=== PATIENT | female | born 1975 | race Caucasian/White ===

== ENCOUNTER 2016-12-16 02:29 | Emergency (ER) | payer OTHER ==
[~2016-12-16] VITALS: Ht 165.1 cm; Wt 89.4 kg
[~2016-12-16 02:29] MED LIST: CEPH500 PO; METH5SOL3 PO; METO25TA3 PO; NAPR500 PO
[2016-12-16 02:36] VITALS: BP 164/91; PULSE 64; RESP 18; TEMP 97.4; O2SAT 100
[2016-12-16 02:56] VITALS: BP 164/91; PULSE 64; RESP 18; O2SAT 100
[2016-12-16] MEDS ORDERED: SODIUM CHLOR 0.9% 1000 ML INJ 1,000 ML IV SCH (03:14)
[2016-12-16] MEDS ORDERED: ONDANSETRON HCL 4 MG/2 ML VIAL IVP ONE (03:15)
[2016-12-16] MEDS ORDERED: HYDROmorphone HCL PF 1 MG/ML VIAL IVS ONE (03:15)
[2016-12-16] MEDS ORDERED: SODIUM CHLORIDE 0.9% FLUSH 10 ML FLUSH IV FLUSH PRN (03:15)
[2016-12-16 03:19] LABS: BLOOD, URINE LARGE (NEG); GLUCOSE,URINE NEG (NEG); KETONE, URINE NEG (NEG); NITRITE,URINE NEG (NEG); PH, URINE 5.5 (5.0-8.5)
[2016-12-16] MEDS ORDERED: METH10TA PO (03:19)
--- NOTE | 2016-12-16 03:21 | PD ---
HPI Chief Complaint: Flank/Kidney Pain Time Seen by Provider: 02:57 Travel History International Travel<30 days: No Contact w/Intl Traveler<30days: No Traveled to known affect area: No History of Present Illness HPI The patient is a 41-year-old female that complains of left sided low back/left flank pain that radiates to the groin area but not down the left leg. She denies any dysuria, frequency or urgency. She has some nausea when the pain gets bad but no vomiting. She denies any fever. The pain started at 8 PM tonight. The patient is on methadone. PFSH Past Medical History Blood Disorders: No Anxiety: Yes Depression: Yes Heart Rhythm Problems: No Cancer: No Cardiac Catheterization: No Cardiovascular Problems: Yes (HTN) High Cholesterol: No Chest Pain: Yes Congestive Heart Failure: No Diabetes: No Diminished Hearing: No Endocrine: No Gastrointestinal Disorders: No Genitourinary: No Hypertension: Yes Immune Disorder: No Musculoskeletal: No Neurologic: No Reproductive: No Respiratory: No Myocardial Infarction: No Thyroid Disease: Yes Tetanus Vaccination: Unknown ?: Not LMP: 12/16/2016 : 7 Para: 4 Miscarriage: 0 : 2 Tubal Ligation: Yes Past Surgical History Cholecystectomy: Yes Coronary Artery Bypass Graft: No Other Surgery: No Social History Alcohol Use: No Tobacco Use: No Substance Use: No (HX OF OPIATE but denies ever using IV drugs) Allergies-Medications (Allergen,Severity, Reaction): Coded Allergies: Iodine (Verified Allergy, Severe, Anaphylaxis, 12/16/16) Shellfish (Verified Allergy, Severe, Anaphylaxis, 12/16/16) Sulfa (Verified Allergy, Severe, Hives, 12/16/16) Latex (Verified Allergy, Mild, SURFACE REACTION-RASH, 12/16/16) Reported Meds & Prescriptions Reported Meds & Active Scripts Active Metoprolol Tartrate 25 Mg Tab 0.5 Tab PO BID Reported Methadone (Methadone HCl) 10 Mg Tab 150 Mg PO DAILY Physical Exam Narrative GENERAL: The patient is alert, oriented 3 and slight apparent distress with her abdominal/pelvic discomfort. The temperature is 97.4 and the blood pressure is 164/91 but the rest the vital signs are normal. SKIN: Focused skin assessment warm/dry. HEAD: Atraumatic. Normocephalic. EYES: Pupils equal and round. No scleral icterus. No injection or drainage. ENT: No nasal bleeding or discharge. Mucous membranes pink and moist. NECK: Trachea midline. No JVD. CARDIOVASCULAR: Regular rate and rhythm. No murmur appreciated. RESPIRATORY: No accessory muscle use. Clear to auscultation. Breath sounds equal bilaterally. GASTROINTESTINAL: Abdomen soft, non-tender, nondistended. Hepatic and splenic margins not palpable. MUSCULOSKELETAL: No obvious deformities. No clubbing. No cyanosis. No edema. NEUROLOGICAL: Awake and alert. No obvious cranial nerve deficits. Motor grossly within normal limits. Normal speech. PSYCHIATRIC: Appropriate mood and affect; insight and judgment normal. Data Data Last Documented VS Vital Signs Date Time Temp Pulse Resp B/P Pulse Ox O2 Delivery O2 Flow Rate FiO2 12/16/16 03:59 66 18 164/83 100 Room Air 12/16/16 02:36 97.4 Orders Urinalysis - C+S If Indicated (12/16/16 03:03) Complete Blood Count With Diff (12/16/16 03:14) Comprehensive Metabolic Panel (12/16/16 03:14) Lipase (12/16/16 03:14) Ct Abd/Pel W/O Iv Contrast (12/16/16 03:14) Iv Access Insert/Monitor (12/16/16 03:14) Ecg Monitoring (12/16/16 03:14) Oximetry (12/16/16 03:14) Ondansetron Inj (Zofran Inj) (12/16/16 03:15) Sodium Chlor 0.9% 1000 Ml Inj (Ns 1000 M (12/16/16 03:14) Sodium Chloride 0.9% Flush (Ns Flush) (12/16/16 03:15) Ed Urine Pregnancytest Poc (12/16/16 03:14) Ketorolac Inj (Toradol Inj) (12/16/16 03:30) Labs Laboratory Tests Test 12/16/16 12/16/16 03:00 03:25 Urine Color JAMES Urine Turbidity MOD Urine pH 5.5 Urine Specific Duncan 1.020 Urine Protein TRACE mg/dL Urine Glucose (UA) NEG mg/dL Urine Ketones NEG mg/dL Urine Occult Blood LARGE Urine Nitrite NEG Urine Bilirubin NEG Urine Leukocyte Esterase NEG Urine RBC 100-200 /hpf Urine WBC 0-2 /hpf Urine Squamous Epithelial 6-8 /hpf Cells Urine Bacteria FEW /hpf Urine Mucus MOD /lpf Microscopic Urinalysis Comment CULT NOT INDICATED White Blood Count 10.3 TH/MM3 Red Blood Count 4.22 MIL/MM3 Hemoglobin 12.0 GM/DL Hematocrit 36.0 % Mean Corpuscular Volume 85.5 FL Mean Corpuscular Hemoglobin 28.4 PG Mean Corpuscular Hemoglobin 33.2 % Concent Red Cell Distribution Width 13.5 % Platelet Count 303 TH/MM3 Mean Platelet Volume 8.7 FL Neutrophils (%) (Auto) 61.4 % Lymphocytes (%) (Auto) 27.9 % Monocytes (%) (Auto) 6.9 % Eosinophils (%) (Auto) 2.7 % Basophils (%) (Auto) 1.1 % Neutrophils # (Auto) 6.3 TH/MM3 Lymphocytes # (Auto) 2.9 TH/MM3 Monocytes # (Auto) 0.7 TH/MM3 Eosinophils # (Auto) 0.3 TH/MM3 Basophils # (Auto) 0.1 TH/MM3 CBC Comment DIFF FINAL Differential Comment Sodium Level 140 MEQ/L Potassium Level 3.6 MEQ/L Chloride Level 104 MEQ/L Carbon Dioxide Level 28.7 MEQ/L Anion Gap 7 MEQ/L Blood Urea Nitrogen 12 MG/DL Creatinine 0.99 MG/DL Estimat Glomerular Filtration 62 ML/MIN Rate Random Glucose 111 MG/DL Calcium Level 8.8 MG/DL Total Bilirubin 0.2 MG/DL Aspartate Amino Transf 18 U/L (AST/SGOT) Alanine Aminotransferase 26 U/L (ALT/SGPT) Alkaline Phosphatase 109 U/L Total Protein 7.7 GM/DL Albumin 3.4 GM/DL Lipase 61 U/L [facility] Medical Decision Making Medical Screen Exam Complete: Yes Emergency Medical Condition: Yes Medical Record Reviewed: Yes Interpretation(s) The CT scan shows a left ovarian cyst that measures up to 4.4 cm. There is no free fluid present. No acute inflammatory process is present. A subcentimeter , likely benign low-density hepatic lesion is also present. The CBC is completely normal. The complete metabolic profile shows a GFR of 62 but is otherwise normal. The lipase is normal. The urine is james colored with moderate turbidity and large occult blood and 100-200 red cells with few bacteria but is otherwise normal and culture is not indicated. The point-of- care urine test is negative. Differential Diagnosis Left ureteral stone, ruptured ovarian cyst, ovarian cyst nonruptured, urinary tract infection, diverticulitis, , ectopic Narrative Course The patient appears to have a non-ruptured ovarian cyst. There is no free fluid present on the CT scan to indicate a ruptured or leaking cyst. The patient is on her menstrual period and this accounts for the blood in the urine. Diagnosis Primary Impression: Ovarian cyst Additional Instructions: Take Motrin 1 tablet 3 times daily. High anti-inflammatory levels usual will relieve the pain. Follow-up with a business quality assurance analyst as soon as possible. If the cyst ruptures it could cause a sudden increase of pain. There is a chance it could be leaking slightly. Med/Other Pt SpecificInfo: Prescription(s) given Scripts Promethazine (Phenergan)25 Mg Tab25 Mg PO Q6H PRN (Nausea/Vomiting) #20 TAB Ref 0 Prov:Jl Han MD 12/16/16 Ibuprofen 600 Mg [id number] Mg PO TID #44 TAB Ref 0 Prov:Jl Han MD 12/16/16 Disposition: 01 DISCHARGE HOME Condition: Stable Jl Han MD Dec 16, 2016 03:21
[2016-12-16] MEDS ORDERED: KETOROLAC TROMETHAMINE 60 MG/2 ML (IM) VIAL IVP ONE (03:30)
[2016-12-16 03:39] LABS: AUTOMATED NEUTROPHIL # 6.3 TH/MM3 (1.8-7.7); BASOPHIL # 0.1 TH/MM3 (0-0.2); BASOPHIL % 1.1 % (0.0-2.0); EOSINOPHIL # 0.3 TH/MM3 (0-0.4); EOSINOPHIL % 2.7 % (0.0-4.0); HEMO FLAGS DIFF FINAL; LYMPH % 27.9 % (9.0-44.0); LYMPHOCYTE # 2.9 TH/MM3 (1.0-4.8); MEAN CELL VOLUME 85.5 FL (80.0-100.0); MEAN CORPUSCULAR HEMOGLOBIN 28.4 PG (27.0-34.0); MEAN CORPUSCULAR HGB CONC 33.2 % (32.0-36.0); MONO % 6.9 % (0.0-8.0); NEUT % 61.4 % (16.0-70.0); PLATELET COUNT 303 TH/MM3 (150-450); RED BLOOD COUNT 4.22 MIL/MM3 (4.00-5.30); RED CELL DISTRIBUTION WIDTH 13.5 % (11.6-17.2); WHITE BLOOD COUNT 10.3 TH/MM3 (4.0-11.0)
[2016-12-16 03:47] LABS: MUCUS URINE MOD /lpf (OCC); RBC, URINE 100-200 /hpf (0-3); URINE COLOR AMBER (YELLW/STRAW)
[2016-12-16 03:50] LABS: WBC, URINE 0-2 /hpf (0-5)
[2016-12-16 03:51] LABS: COMMENT (UR) CULT NOT INDICATED; CULTURE IF INDICATED CULT NOT INDICATED
[2016-12-16 03:52] LABS: BACTERIA, URINE FEW /hpf
[2016-12-16 03:57] VITALS: BP 164/83; PULSE 66; RESP 18; O2SAT 100
[2016-12-16 03:58] LABS: CHLORIDE 104 MEQ/L (98-107); POTASSIUM 3.6 MEQ/L (3.5-5.1); SODIUM (NA) 140 MEQ/L (136-145)
[2016-12-16 03:59] VITALS: BP 164/83; PULSE 66; RESP 18; O2SAT 100
[2016-12-16 04:02] LABS: ANION GAP 7 MEQ/L (5-15); BICARBONATE 28.7 MEQ/L (21.0-32.0); BLOOD UREA NITROGEN 12 MG/DL (7-18)
[2016-12-16 04:05] LABS: ALT (GPT) 26 U/L (10-53); AST (GOT) 18 U/L (15-37); GLOMERULAR FILTRATION RATE 62 ML/MIN (>89)
[2016-12-16 04:06] LABS: TOTAL BILIRUBIN ADULT 0.2 MG/DL (0.2-1.0)
[2016-12-16 04:08] LABS: ALKALINE PHOSPHATASE 109 U/L (45-117)
--- NOTE | 2016-12-16 04:13 | RADHPO ---
EXAM DATE/TIME: 12/16/2016 03:40 [place] COMPARISON: No previous studies available for comparison. INDICATIONS : Left flank and back pain. ORAL CONTRAST: No oral contrast ingested. RADIATION DOSE: 23.21 CTDIvol (mGy) MEDICAL HISTORY : Hypertension. SURGICAL HISTORY : Cholecystectomy. Tubal ligation. ENCOUNTER: Initial ACUITY: 1 day PAIN SCALE: 9/10 LOCATION: Left flank TECHNIQUE: Volumetric scanning of the abdomen and pelvis was performed. Using automated exposure control and ad justment of the mA and/or kV according to patient size, radiation dose was kept as low as reasonably achievable to obtain optimal diagnostic quality images. FINDINGS: LOWER LUNGS: The visualized lower lungs are clear. LIVER: Homogeneous density without lesion. There is no dilation of the biliary tree. No calcified gallston es. Subcentimeter hepatic low-density appears of fat density and benign. SPLEEN: Normal size without lesion. PANCREAS: Within normal limits. KIDNEYS: Normal in size and shape. There is no mass, stone, or hydronephrosis. No ureteral calculi. ADRENAL GLANDS: Within normal limits. VASCULAR: There is no aortic aneurysm. BOWEL/MESENTERY: The stomach, small bowel, and colon demonstrate no acute abnormality. There is no free intraperitone al air or fluid. Normal appendix. ABDOMINAL WALL: Within normal limits. RETROPERITONEUM: There is no lymphadenopathy. BLADDER: No wall thickening or mass. REPRODUCTIVE: Left ovarian cyst measures 4.4 x 3.4 cm.. INGUINAL: There is no lymphadenopathy or hernia. MUSCULOSKELETAL: Within normal limits for patient age. CONCLUSION: 1. Left ovarian cyst measures up to 4.4 cm. Followup pelvic sonogram in 3-4 weeks recommended for sta bility. 2. No acute inflammatory process. 3. Subcentimeter hepatic low-density, likely benign. Chiki Tracy MD on December 16, 2016 at 4:09 Board Certified Radiologist. This report was verified electronically.
[2016-12-16] MEDS ORDERED: IBUP-232 PO (04:53)
[2016-12-16] MEDS ORDERED: PROM25TA5 PO (04:54)
== END 2016-12-16 05:19 | disposition home or self-care (01) ==
LOC: PHED 02:29
DX: M54.5 Low back pain (principal); R10.32 Left lower quadrant pain; N83.202 Unspecified ovarian cyst, left side; I10 Essential (primary) hypertension; E07.9 Disorder of thyroid, unspecified
CPT/HCPCS: 74176; 80053; 81001; 83690; 84703; 85025; 96361; 96374; 96375; 99284; J1885; J2405; J7030

== ENCOUNTER 2016-12-22 20:01 | Emergency (ER) | payer OTHER ==
[~2016-12-22] VITALS: Ht 165.1 cm; Wt 89.1 kg
[~2016-12-22 20:01] MED LIST changes: -CEPH500 PO; +IBUP-232 PO; +METH10TA PO; -METH5SOL3 PO; -NAPR500 PO; +PROM25TA5 PO
[2016-12-22] MEDS ORDERED: CLINDAMYCIN INJ 900 MG in SODIUM CHLORIDE 0.9% INJ 100 ML IV ONE (21:45)
[2016-12-22] MEDS ORDERED: CLINDAMYCIN PHOS 600 MG/4 ML VIAL IM ONE (21:45)
[2016-12-22] MEDS ORDERED: IBUP800T23 PO (21:50)
[2016-12-22] MEDS ORDERED: CLIN1CAP5 PO (21:50)
[2016-12-22] MEDS ORDERED: FLOR250C PO (21:50)
[2016-12-22] MEDS ORDERED: TRAM50TA PO (21:51)
--- NOTE | 2016-12-22 21:52 | PD ---
HPI Chief Complaint: Oral / Dental Pain or Problem Time Seen by Provider: 21:46 Travel History International Travel<30 days: No Contact w/Intl Traveler<30days: No Traveled to known affect area: No History of Present Illness HPI Patient is a 41-year-old female presenting to emergency department evaluation of right lower jaw and tooth pain. Patient states she had a toothache yesterday but woke up this morning with her chin and her right lower jaw swollen. She states pain is an 8 out of 10 and describes it as pressure-like and throbbing. Patient has an appointment with her dentist on Wednesday but due to the increased swelling and pain she came to the emergency department for evaluation. She denies any fever, chills, nausea, vomiting, headache or shortness of breath. PFSH Past Medical History Blood Disorders: No Anxiety: Yes Depression: Yes Heart Rhythm Problems: No Cancer: No Cardiac Catheterization: No Cardiovascular Problems: Yes (HTN) High Cholesterol: No Chest Pain: Yes Congestive Heart Failure: No Diabetes: No Diminished Hearing: No Endocrine: No Gastrointestinal Disorders: No Genitourinary: No Hypertension: Yes Immune Disorder: No Musculoskeletal: No Neurologic: No Reproductive: No Respiratory: No Myocardial Infarction: No Thyroid Disease: Yes Tetanus Vaccination: > 5 Years Influenza Vaccination: No ?: Unknown LMP: 2 DAYS AGO : 7 Para: 4 Miscarriage: 0 : 2 Tubal Ligation: Yes Past Surgical History Cholecystectomy: Yes Coronary Artery Bypass Graft: No Other Surgery: No Social History Alcohol Use: No Tobacco Use: No Substance Use: No (HX OF OPIATE but denies ever using IV drugs) Allergies-Medications (Allergen,Severity, Reaction): Coded Allergies: Iodine (Verified Allergy, Severe, Anaphylaxis, 12/16/16) Shellfish (Verified Allergy, Severe, Anaphylaxis, 12/16/16) Sulfa (Verified Allergy, Severe, Hives, 12/16/16) Latex (Verified Allergy, Mild, SURFACE REACTION-RASH, 12/16/16) Reported Meds & Prescriptions Reported Meds & Active Scripts Active Metoprolol Tartrate 25 Mg Tab 0.5 Tab PO BID Reported Methadone (Methadone HCl) 10 Mg Tab 150 Mg PO DAILY Review of Systems Except as stated in HPI: all other systems reviewed are Neg HENT: Positive: Dental Difficulties Musculoskeletal: Positive: Edema, Pain Physical Exam Narrative GENERAL: Well-nourished, well-developed patient. SKIN: Focused skin assessment warm/dry. Chin is edematous, no erythema noted. Mildly tender to palpation. HEAD: Normocephalic. MOUTH: Mucous membranes moist, no lesions, tongue and gums appear normal. Right lower lateral incisor and cuspid have obvious dental caries and a broken. EYES: No scleral icterus. No injection or drainage. NECK: Supple, trachea midline. No JVD or lymphadenopathy. CARDIOVASCULAR: Regular rate and rhythm without murmurs, gallops, or rubs. RESPIRATORY: Breath sounds equal bilaterally. No accessory muscle use. GASTROINTESTINAL: Abdomen soft, non-tender, nondistended. MUSCULOSKELETAL: No cyanosis, or edema. BACK: Nontender without obvious deformity. No CVA tenderness. Data Data Orders Iv Access Insert/Monitor (12/22/16 21:33) Clindamycin Inj (Cleocin Inj) (12/22/16 21:45) Clindamycin Inj (Cleocin Inj) (12/22/16 21:45) MDM Medical Decision Making Medical Screen Exam Complete: Yes Emergency Medical Condition: Yes Differential Diagnosis Caries versus abscess versus cellulitis versus other Narrative Course Patient is a 41-year-old female presented to the emergency department for evaluation of right lower tooth pain and jaw swelling. Physical examination is most consistent with dental abscess. Patient will be given clindamycin emergency department. She'll be provided with a prescription for clindamycin to complete full course of antibiotics at home. She has an appointment with a dentist on Wednesday, she was advised to keep this appointment. She is encouraged to return to emergency department for any new or worsening symptoms. Patient verbalized understanding of these instructions. Patient is stable for discharge. Diagnosis Primary Impression: Dental abscess Referrals: Dentist 3 days Patient Instructions: Dental Abscess (GEN), Dental Caries (ED), General Instructions Additional Instructions: Follow-up with your dentist on Wednesday as scheduled Complete full course of antibodies as prescribed Return to emergency department for any new or worsening symptoms Do not drive or operate heavy machinery while taking narcotic pain medication Med/Other Pt SpecificInfo: Prescription(s) given Scripts Ibuprofen 800 Mg [id number] Mg PO Q6HR PRN (PAIN) #40 TAB Ref 0 Prov:Ute Yuen 12/22/16 Saccharomyces Boulardii (Florastor)250 Mg [id number] Mg PO BID 10 Days Ref 0 Prov:Ute Yuen 12/22/16 Clindamycin 150 Mg [id number] Mg PO Q8HR 10 Days Ref 0 Prov:Ute Yuen 12/22/16 Disposition: 01 DISCHARGE HOME Condition: Stable Ute Yuen Dec 22, 2016 21:51
[2016-12-22 22:31] VITALS: BP 154/93; PULSE 86; RESP 18; TEMP 98.4; O2SAT 97
== END 2016-12-22 22:51 | disposition home or self-care (01) ==
LOC: PHED 20:01 → PHEFT 22:51
DX: K04.7 Periapical abscess without sinus (principal); I10 Essential (primary) hypertension; E07.9 Disorder of thyroid, unspecified
CPT/HCPCS: 96372

== ENCOUNTER 2017-09-15 17:19 | Emergency (ER) | payer SELFPAY ==
[~2017-09-15 17:19] MED LIST changes: +CLIN150C14 PO; +FLOR250C PO; -IBUP-232 PO; +IBUP1TAB7 PO; -PROM25TA5 PO; +TRAM50TA PO
[2017-09-15 18:11] VITALS: BP 124/79; PULSE 86; RESP 20; TEMP 99; O2SAT 98
[2017-09-15] MEDS ORDERED: DICYCLOMINE HCL 20 MG/2 ML VIAL IM ONE (20:15)
[2017-09-15] MEDS ORDERED: SODIUM CHLOR 0.9% 1000 ML INJ 1,000 ML IV SCH ×2 (20:15)
[2017-09-15] MEDS ORDERED: ONDANSETRON HCL 4 MG/2 ML VIAL IV PUSH ONE (20:15)
[2017-09-15] MEDS ORDERED: LOPERAMIDE HCL 2 MG CAP PO ONE (20:15)
[2017-09-15 21:13] VITALS: BP 140/74; PULSE 83; RESP 20; O2SAT 97
[2017-09-15 21:15] LABS: CHLORIDE 106 MEQ/L (98-107); SODIUM (NA) 139 MEQ/L (136-145)
--- NOTE | 2017-09-15 21:15 | PD ---
HPI Chief Complaint: GI Complaint Time Seen by Provider: 20:10 Travel History International Travel<30 days: No Contact w/Intl Traveler<30days: No Traveled to known affect area: No History of Present Illness HPI A 42-year-old woman who presents to the emergency department complaining of nausea vomiting diarrhea that started this morning. She has abdominal pain with it as well. No blood. No fevers. She symptoms came on fairly abruptly. No definite sick contacts. No recent travel. No undercooked or unusual foods. History Past Medical History Narrative Medical Hypertension History of episodes of increased heart rate in the past Influenza Vaccination: No LMP: 09/12/16 : 7 Para: 4 Social History Alcohol Use: No Tobacco Use: No Allergies-Medications (Allergen,Severity, Reaction): Coded Allergies: Sulfa (Sulfonamide Antibiotics) (Unverified Allergy, Severe, Hives, ) iodine (Unverified Allergy, Severe, Anaphylaxis, 04/20/17) potassium iodide (Unverified Allergy, Severe, Anaphylaxis, 04/20/17) povidone-iodine (Unverified Allergy, Severe, Anaphylaxis, 04/20/17) shellfish derived (Unverified Allergy, Severe, Anaphylaxis, 04/20/17) sodium iodide (Unverified Allergy, Severe, Anaphylaxis, 04/20/17) sodium iodide (Unverified Allergy, Severe, Anaphylaxis, 04/20/17) latex (Unverified Allergy, Mild, SURFACE REACTION-RASH, 04/20/17) Reported Meds & Prescriptions Reported Meds & Active Scripts Active Ibuprofen 800 Mg Tab 800 Mg PO Q6HR PRN Metoprolol Tartrate 25 Mg Tab 0.5 Tab PO BID Reported Methadone (Methadone HCl) 10 Mg Tab 150 Mg PO DAILY Review of Systems Except as stated in HPI: all other systems reviewed are Neg Physical Exam Narrative GENERAL: Appears uncomfortable, nontoxic SKIN: Focused skin assessment warm/dry. HEAD: Atraumatic. Normocephalic. EYES: Pupils equal and round. No scleral icterus. No injection or drainage. ENT: No nasal bleeding or discharge. Mucous membranes pink and moist. NECK: Trachea midline. No JVD. CARDIOVASCULAR: Regular rate and rhythm. No murmur appreciated. RESPIRATORY: No accessory muscle use. Clear to auscultation. Breath sounds equal bilaterally. GASTROINTESTINAL: Abdomen soft, non-tender, nondistended. Hepatic and splenic margins not palpable. MUSCULOSKELETAL: No obvious deformities. No clubbing. No cyanosis. No edema. NEUROLOGICAL: Awake and alert. No obvious cranial nerve deficits. Motor grossly within normal limits. Normal speech. PSYCHIATRIC: Appropriate mood and affect; insight and judgment normal. Data Data Last Documented VS Vital Signs Date Time Temp Pulse Resp B/P (MAP) Pulse Ox O2 Delivery O2 Flow Rate FiO2 09/15/17 23:21 91 20 108/58 (75) 99 09/15/17 18:11 99.0 Orders Orders Ed Urine Pregnancytest Poc (09/15/17 17:37) Complete Blood Count With Diff (09/15/17 20:11) Comprehensive Metabolic Panel (09/15/17 20:11) Iv Access Insert/Monitor (09/15/17 20:11) Lipase (09/15/17 20:11) Sodium Chlor 0.9% 1000 Ml Inj (Ns 1000 M (09/15/17 20:15) Sodium Chlor 0.9% 1000 Ml Inj (Ns 1000 M (09/15/17 20:15) Dicyclomine Inj (Bentyl Inj) (09/15/17 20:15) Loperamide (Imodium) (09/15/17 20:15) Ondansetron Inj (Zofran Inj) (09/15/17 20:15) Labs Laboratory Tests Test 09/15/17 20:50 White Blood Count 16.8 TH/MM3 Red Blood Count 4.49 MIL/MM3 Hemoglobin 12.5 GM/DL Hematocrit 38.5 % Mean Corpuscular Volume 85.8 FL Mean Corpuscular Hemoglobin 27.8 PG Mean Corpuscular Hemoglobin Concent 32.4 % Red Cell Distribution Width 13.1 % Platelet Count 257 TH/MM3 Mean Platelet Volume 9.1 FL Neutrophils (%) (Auto) 89.3 % Lymphocytes (%) (Auto) 5.2 % Monocytes (%) (Auto) 4.3 % Eosinophils (%) (Auto) 0.1 % Basophils (%) (Auto) 1.1 % Neutrophils # (Auto) 15.0 TH/MM3 Lymphocytes # (Auto) 0.9 TH/MM3 Monocytes # (Auto) 0.7 TH/MM3 Eosinophils # (Auto) 0.0 TH/MM3 Basophils # (Auto) 0.2 TH/MM3 CBC Comment DIFF FINAL Differential Comment Blood Urea Nitrogen 16 MG/DL Creatinine 0.90 MG/DL Random Glucose 104 MG/DL Total Protein 7.8 GM/DL Albumin 3.7 GM/DL Calcium Level 8.8 MG/DL Alkaline Phosphatase 101 U/L Aspartate Amino Transf (AST/SGOT) 27 U/L Alanine Aminotransferase (ALT/SGPT) 26 U/L Total Bilirubin 0.4 MG/DL Sodium Level 139 MEQ/L Potassium Level 4.0 MEQ/L Chloride Level 106 MEQ/L Carbon Dioxide Level 26.6 MEQ/L Anion Gap 6 MEQ/L Estimat Glomerular Filtration Rate 69 ML/MIN Lipase 55 U/L [facility] Medical Decision Making Medical Screen Exam Complete: Yes Emergency Medical Condition: Yes Interpretation(s) LABS: CbC remarkable for mild leukocytosis. CMP unremarkable. Differential Diagnosis Acute gastroenteritis, enteritis, influenza, other Narrative Course Medical decision-making 42-year-old with abrupt onset nausea vomiting diarrhea with copious watery diarrhea, suggestive of acute gastroenteritis. Looks uncomfortable but not unwell. Recommend IV fluids, labs, reassess. Diagnosis Primary Impression: Nausea vomiting and diarrhea Additional Instructions: Use Zofran if needed for nausea or vomiting. Use loperamide if needed for diarrhea. Drink plenty fluids stay well-hydrated. Return to the emergency department for any new or worsening symptoms. Med/Other Pt SpecificInfo: Prescription(s) given Scripts Ondansetron Odt (Ondansetron Odt) 4 Mg Tab 4 MG SL Q8HR Y for Nausea/Vomiting, #12 TAB 0 Refills Prov: Db Mcmillan MD 09/16/17 Loperamide (Loperamide) 2 Mg Cap 2 MG PO DIRECTED Y for DIARRHEA, #6 CAP 0 Refills One capsule after each loose stool. Not to exceed 8 capsules per day. Prov: Db Mcmillan MD 09/16/17 Disposition: 01 DISCHARGE HOME Condition: Stable Db Mcmillan MD Sep 15, 2017 21:15
[2017-09-15 21:19] LABS: CALCIUM 8.8 MG/DL (8.5-10.1)
[2017-09-15 21:20] LABS: ALBUMIN 3.7 GM/DL (3.4-5.0); BICARBONATE 26.6 MEQ/L (21.0-32.0); BLOOD UREA NITROGEN 16 MG/DL (7-18); GLUCOSE,RANDOM 104 MG/DL (74-106); LIPASE 55 U/L (73-393)
[2017-09-15 21:22] LABS: ALT (GPT) 26 U/L (10-53); AST (GOT) 27 U/L (15-37); GLOMERULAR FILTRATION RATE 69 ML/MIN (>89)
[2017-09-15 21:24] LABS: TOTAL BILIRUBIN ADULT 0.4 MG/DL (0.2-1.0); TOTAL PROTEIN 7.8 GM/DL (6.4-8.2)
[2017-09-15 21:25] LABS: ALKALINE PHOSPHATASE 101 U/L (45-117)
[2017-09-15 21:30] LABS: BASOPHIL # 0.2 TH/MM3 (0-0.2); BASOPHIL % 1.1 % (0.0-2.0); EOSINOPHIL % 0.1 % (0.0-4.0); HEMATOCRIT 38.5 % (35.0-46.0); HEMOGLOBIN 12.5 GM/DL (11.6-15.3); LYMPH % 5.2 % (9.0-44.0); LYMPHOCYTE # 0.9 TH/MM3 (1.0-4.8); MEAN CELL VOLUME 85.8 FL (80.0-100.0); MEAN CORPUSCULAR HEMOGLOBIN 27.8 PG (27.0-34.0); MEAN CORPUSCULAR HGB CONC 32.4 % (32.0-36.0); MEAN PLATELET VOLUME 9.1 FL (7.0-11.0); MONO % 4.3 % (0.0-8.0); MONOCYTE # 0.7 TH/MM3 (0-0.9); NEUT % 89.3 % (16.0-70.0); PLATELET COUNT 257 TH/MM3 (150-450); RED BLOOD COUNT 4.49 MIL/MM3 (4.00-5.30); RED CELL DISTRIBUTION WIDTH 13.1 % (11.6-17.2); WHITE BLOOD COUNT 16.8 TH/MM3 (4.0-11.0)
[2017-09-15 22:37] VITALS: BP 120/69; PULSE 86; RESP 20; O2SAT 100
[2017-09-15 23:21] VITALS: BP 108/58; PULSE 91; RESP 20; O2SAT 99
[2017-09-16] MEDS ORDERED: ONDA4TAB7 SL (00:29)
[2017-09-16] MEDS ORDERED: LOPE2CAP PO (00:29)
[2017-09-16 00:46] VITALS: BP 131/72
== END 2017-09-16 00:50 | disposition home or self-care (01) ==
LOC: PHED 17:19
DX: R11.2 Nausea with vomiting, unspecified (principal); R19.7 Diarrhea, unspecified; R10.9 Unspecified abdominal pain; I10 Essential (primary) hypertension
CPT/HCPCS: 80053; 83690; 84703; 85025; 96372; 96374; 99284; J0500; J2405; J7030